=== PATIENT | female | born 1985 ===

== ENCOUNTER 2019-10-14 13:34 | Emergency (ER) | payer OTHER ==
[~2019-10-14] VITALS: Ht 170.2 cm; Wt 70.3 kg
--- NOTE | 2019-10-14 13:43 | NUR ---
AAOX3, BIBRA 839 from home c/o worsening lower abdominal pain on/off x 3 days. Denies any nausea, vomiting or diarrhea today. RR is even and unlabored with nad noted. Skin is warm and dry. Awaiting MD for eval.
[2019-10-14] MEDS ORDERED: IV NS 0.9% 1,000 ML BAG IV ONE (14:00)
--- NOTE | 2019-10-14 14:03 | NUR ---
DR GILL AT BEDSIDE
[2019-10-14] MEDS ORDERED: ONDANSETRON HCL/PF 4 MG/2 ML VIAL ONE (14:13)
[2019-10-14] MEDS ORDERED: MORPHINE SULFATE INJ 4 MG/ML DISP.SYRIN ONE (14:14)
[2019-10-14 14:20] LABS: APPEARANCE,URINE Slightly Cloudy (CLEAR); BASOPHILS % (AUTO) 0.2 % (0.0-2.0); BILIRUBIN,URINE Negative (NEGATIVE); BLOOD, URINE Negative Ery/uL (NEGATIVE); COLOR,URINE Yellow (YELLOW); EOSINOPHILS % (AUTO) 1.3 % (0.0-6.0); HEMATOCRIT 48 % (33-45); HEMOGLOBIN 16.1 g/dL (11.5-14.8); KETONES,URINE 40 (NEGATIVE); LEUKOCYTE ESTERASE ,URINE Negative (NEGATIVE); LYMPHOCYTES # (AUTO) 2.7 /CMM (0.8-4.8); LYMPHOCYTES % (AUTO) 26.4 % (20.0-44.0); MEAN CORPUSCULAR HGB CONC 33 g/dl (31.0-36.0); MEAN CORPUSCULAR VOLUME 91 fL (82-100); MONOCYTES # (AUTO) 0.1 /CMM (0.1-1.30); MONOCYTES % (AUTO) 0.7 % (2.0-12.0); NEUTROPHILS # (AUTO) 7.3 /CMM (1.8-8.9); NEUTROPHILS % (AUTO) 71.4 % (43.0-81.0); NITRITE, URINE Negative (NEGATIVE); PLATELET COUNT (AUTO) 434 /CMM (150-450); PROTEIN,URINE Trace mg/dl (NEGATIVE); RED BLOOD CELL COUNT(AUTO) 5.32 MIL/uL (4.0-5.2); UGLUCOSE Negative (NEGATIVE); UROBILINOGEN,URINE 0.2 EU/dL (0.2); WHITE BLOOD COUNT (AUTO) 10.1 K/uL (4.3-11.0)
[2019-10-14 14:25] LABS: BACTERIA,URINE Moderate /HPF (None Seen); SQUAMOUS EPITHELIAL CELL,UR Many /HPF (None Seen)
[2019-10-14 14:29] LABS: CALCIUM, SERUM 7.9 mg/dL (8.5-10.1); CREATININE 0.7 mg/dL (0.6-1.3); POTASSIUM 3.6 mmol/L (3.5-5.1)
[2019-10-14] MEDS ORDERED: ONDANSETRON HCL/PF - ER 4 MG/2 ML VIAL IV ONE (14:30)
[2019-10-14] MEDS ORDERED: MORPHINE SULFATE INJ 2 MG/ML DISP.SYRIN IV ONE (14:30)
[2019-10-14 14:34] LABS: BILIRUBIN,DIRECT 0.2 mg/dL (0.0-0.2); BILIRUBIN,TOTAL 0.8 mg/dL (0.2-1.0); TOTAL PROTEIN, SERUM 5.8 g/dL (6.4-8.2)
--- NOTE | 2019-10-14 16:52 | NUR ---
CALLED [facility] [employer]. AWAITNG CALL BACK
--- NOTE | 2019-10-14 17:08 | NUR ---
CALLED A FOLLOW UP FOR [employer] [facility]
[2019-10-14] MEDS ORDERED: SULFAMETH/TRIMETH 800/160 MG 1 UDTAB TABLET ONE (17:47)
[2019-10-14] MEDS ORDERED: METRONIDAZOLE 500 MG TABLET ONE (17:48)
--- NOTE | 2019-10-14 17:54 | NUR ---
IV removed. Catheter intact and site benign. Pressure and 4x4 applied to site. No bleeding noted. Patient discharged to home in stable condition. Instructed not to drive. Will be picked up by friend. Written and verbal after care instructions given. Patient verbalizes understanding of instruction.
[2019-10-14 17:55] VITALS: BP 119/60
[2019-10-14] MEDS ORDERED: METRONIDAZOLE 500 MG TABLET PO ONE (18:00)
[2019-10-14] MEDS ORDERED: SULFAMETH/TRIMETH 800/160 MG 1 UDTAB TABLET PO ONE (18:00)
== END 2019-10-14 17:56 | disposition home or self-care (01) ==
LOC: ER 13:37 → EDBD 13:37 → ER 17:56
DX: K52.9 Noninfective gastroenteritis and colitis, unspecified (principal); Z60.2 Problems related to living alone
CPT/HCPCS: 36415; 74176; 80048; 80076; 81001; 83690; 84703; 85025; 87086; 96361; 96374; 96375; 99284; J2270; J2405; J7030; 81000-TC